=== PATIENT | female | born 1985 | race African-American/Black ===

== ENCOUNTER 2024-10-10 08:07 | Emergency (ER) | payer MEDICAID ==
[~2024-10-10] VITALS: Ht 170.2 cm; Wt 91.0 kg
[2024-10-10 08:10] VITALS: O2SAT 100
[2024-10-10 09:07] LABS: BASOPHILS % 0.3 % (0.0-2.0); DIFFERENTIAL COMMENT 0; EOSINOPHILS % 4.6 % (0.0-5.0); HEMOGLOBIN. 12.1 g/dL (12.0-16.0); LYMPHOCYTES % 22.7 % (20.0-50.0); MEAN CORPUSCULAR HGB CONC 32.7 g/dL (31.0-37.0); MEAN CORPUSCULAR VOLUME 82.5 fL (81.0-99.0); MEAN PLATELET VOLUME 8.3 fl (7.4-10.4); MONOCYTES % 7.8 % (2.0-8.0); NEUTROPHILS % 64.6 % (40.0-76.0); PLATELET 341 x1000/uL (130-400); RED BLOOD CELL COUNT 4.48 mill/uL (4.2-5.4); RED CELL DISTRIBUTION WIDTH 13.7 % (11.6-14.6); WHITE BLOOD COUNT 5.5 x1000/uL (4.5-11.0)
[2024-10-10 09:14] LABS: CHLORIDE 104 mEq/L (98-107); POTASSIUM 3.9 mEq/L (3.5-5.1); SODIUM 137 mEq/L (136-145)
[2024-10-10 09:15] LABS: CARBON DIOXIDE 25 mEq/L (21-32)
[2024-10-10 09:16] LABS: CALCIUM 8.9 mg/dL (8.7-10.4)
[2024-10-10 09:20] LABS: CREATININE 0.6 mg/dL (0.6-1.0); GLUCOSE 95 mg/dL (70-105); UREA NITROGEN BLOOD 5 mg/dL (9-23)
[2024-10-10] MEDS: ACETAMINOPHEN 325MG TABLET PO NR (09:56)
[2024-10-10 10:36] LABS: CLARITY URINE CLOUDY (CLEAR); COLOR URINE YELLOW (YELLOW); GLUCOSE URINE NEGATIVE (NEGATIVE); KETONES URINE NEGATIVE (NEGATIVE); LEUKOCYTE ESTERASE URINE NEGATIVE (NEGATIVE); NITRITE URINE NEGATIVE (NEGATIVE); OCCULT BLOOD URINE NEGATIVE (NEGATIVE); PROTEIN URINE NEGATIVE (NEGATIVE)
[2024-10-10 11:14] LABS: SQUAMOUS EPITHELIAL CELL URINE 3+ /lpf (RARE/1+)
[2024-10-10 11:15] LABS: MUCUS URINE 3+ /lpf (< = 2+)
[2024-10-10 11:16] LABS: BACTERIA URINE 3+; RBC URINE NONE SEEN /hpf (0-2)
[2024-10-10] MEDS ORDERED: CEPH500C2 MT (11:27)
[2024-10-10 11:35] VITALS: BP 105/50; PULSE 84; RESP 18; TEMP 36.8; O2SAT 100
== END 2024-10-10 11:56 | disposition home or self-care (01) ==
LOC: ER 08:07
DX: O26.892 Other specified pregnancy related conditions, second trimester (principal); M54.50 Low back pain, unspecified; Z3A.28 28 weeks gestation of pregnancy
CPT/HCPCS: 36415; 76805; 80048; 81003; 85025; 99284; 99285